=== PATIENT | male | born 1965 | race Caucasian/White ===

== ENCOUNTER 2017-07-14 14:04 | Inpatient (IN) | payer OTHER ==
[2017-07-14] MEDS ORDERED: RX INFO: IV CONTRAST WAS GIVEN 1 EACH MISC MISCELLANE PRN (14:09)
--- NOTE | 2017-07-14 14:38 | CT ---
EXAMINATION TYPE: CT brain wo con for TPA DATE OF EXAM: 07/14/2017 COMPARISON: NONE INDICATION: Neural deficits DLP: 1027.50 mGycm, Automated exposure control for dose reduction was used. CONTRAST: None CT of the brain is performed utilizing 3 mm thick sections through the posterior fossa and 3 mm thick sections through the remaining calvarium. Study is performed within 24 hours of arrival to the hosp ital. No abnormal hyperdensity is present to suggest an acute intracranial hemorrhage. No mass lesion is evident. No acute infarcts are evident. There is an old infarct through the right frontal region deep white ma tter. Prior subcortical infarct is likely present. Differential could include posttraumatic changes. The cortex may be preserved however. There is prominence of the ventricles and sulci adjacent to the infarct. Some mild periventricular white matter hypodensity is present likely on the basis of chronic white matter ischemic changes. Ventricles and sulci are appropriate for the patient age. Paranasal sinuses and mastoid air cells within the [id number] are clear. Prior repair of the infer ior left orbit is evident. IMPRESSIONS: 1. No acute intracranial process. 2. Chronic appearing white matter ischemic changes. 3. Old subcortical infarct likely present through the right frontal region with ex vacuo effect.
[2017-07-14 14:44] LABS: Basophils # (A) 0.1 k/uL (0-0.2); Basophils % (A) 1 %; CH 29.5; CHCM 34.1; Eosinophils # (A) 0.2 k/uL (0-0.7); Eosinophils % (A) 2 %; HCT 52.8 % (39.0-53.0); HDW 2.71; HGB 17.1 gm/dL (13.0-17.5); Luc # (Auto) 0.22; Luc % (Auto) 2; Lymphocytes # (A) 2.9 k/uL (1.0-4.8); Lymphocytes % (A) 26 %; MCH 28.1 pg (25.0-35.0); MCHC 32.4 g/dL (31.0-37.0); MCV 86.8 fL (80.0-100.0); Mean Platelet Volume 8.1; Monocytes # (A) 0.8 k/uL (0-1.0); Monocytes % (A) 7 %; Neutrophils # (A) 7.2 k/uL (1.3-7.7); Neutrophils % (A) 63 %; RBC 6.08 m/uL (4.30-5.90); RDW 15.3 % (11.5-15.5); WBC 11.4 k/uL (3.8-10.6); WBC (Perox) 11.06
[2017-07-14 14:48] LABS: Prothrombin Time 9.8 sec (9.0-12.0)
[2017-07-14 14:49] LABS: Partial Thromboplastin Time 20.9 sec (22.0-30.0)
[2017-07-14 14:50] LABS: ALT 78 U/L (21-72); AST 57 U/L (17-59); Alkaline Phosphatase 140 U/L (38-126); Anion Gap 12 mmol/L; Blood Urea Nitrogen 9 mg/dL (9-20); Calcium 9.6 mg/dL (8.4-10.2); Carbon Dioxide 24 mmol/L (22-30); Chloride 106 mmol/L (98-107); Glucose 203 mg/dL (74-99); Non-African American GFR(MDRD) >60 (>60 ml/min/1.73 sqM); Sodium 142 mmol/L (137-145); Total Protein 8.3 g/dL (6.3-8.2)
[2017-07-14 14:56] LABS: Glucose,Whole Blood 216 mg/dL (75-99)
[2017-07-14 15:02] LABS: Potassium 5.2 mmol/L (3.5-5.1)
[2017-07-14 15:08] LABS: Creatine Kinase 45 U/L (55-170)
[2017-07-14 15:20] LABS: Creatine Kinase MB 1.2 ng/mL (0.0-2.4); Troponin I <0.012 ng/mL (0.000-0.034)
[2017-07-14] MEDS ORDERED: SODIUM CHLORIDE 0.9% 1,000 ML IV STA (15:27)
--- NOTE | 2017-07-14 15:43 | CT ---
EXAMINATION TYPE: CT angio head neck DATE OF EXAM: 07/14/2017 HISTORY: Left sided weakness COMPARISON: Noncontrast CT brain 07/14/2017 CT DLP: 359.1 mGycm. Automated Exposure Control for Dose Reduction was Utilized. TECHNIQUE: CTA scan of the neck is performed with IV Contrast, patient injected with 65 mL of Omnipa que 350, axial images are obtained, coronal and sagittal reformatted images are reviewed. Three-D rec onstructed images are created on an independent workstation and reviewed. FINDINGS: Carotid/Vascular Structures: There is occlusion of the right internal carotid artery at its origin. D istal right internal carotid artery has contrast from crossover flow from left to right. Additionally there may be flow from the right posterior communicating artery which is likely present and patent. [place] of [place]: There appears to be attenuated flow within the right A1 segment. The A2 segment lik ewise appears attenuated. There is a small amount of crossover flow in the anterior communicating art omar. The right M1 segment appears normal. M2 segments appear unremarkable on the reconstructed images . Communicating arteries are not identified on the reconstructed images. Other: Right Middle meningeal artery collateral flow was not clearly documented. IMPRESSION: 1. Occlusion of the right internal carotid artery. 2. Attenuated flow within the right A1 segment. The M1 segment is more normal appearance. Faint minim al flow may be present within the anterior communicating artery and the right posterior communicating artery.
[2017-07-14] MEDS ORDERED: SODIUM CHLORIDE 0.9% 1,000 ML IV ONE (15:54)
[2017-07-14] MEDS ORDERED: ASPIRIN 325 MG TAB PO STA (15:54)
[2017-07-14] MEDS ORDERED: levETIRAcetam IV 1,000 MG in SALINE 1 100ML.BAG IVPB STA (15:56)
--- NOTE | 2017-07-14 16:09 | ED ---
General Adult HPI - General Chief complaint: Neuro Symptoms/Deficit Stated complaint: Seizure Time Seen by Provider: 07/14/17 14:09 Source: patient, family, EMS, RN notes reviewed Mode of arrival: EMS Limitations: no limitations - History of Present Illness Initial comments: 52-year-old male with history of hypertension, diabetes, hypercholesterolemia and history of CVA presents with seizure-like activity and left upper extremity weakness. Patient had a CVA approximately one year ago with residual left- sided deficit, he does not have use of his left lower extremity. At baseline the patient does have good strength in his left arm. At approximately 1:30 PM the patient developed shaking on his right upper extremity which was uncontrollable. He was awake and alert according to family members throughout this episode. This lasted approximately 10 minutes. Patient did have seizure activity with his previous CVA approximately one year ago. Patient has not been taking aspirin daily, states it upsets his stomach. He denies missing any of his other medication which includes a blood pressure pill and high cholesterol pill patient denies headache. Denies chest pain or shortness of breath. Confirms that his left lower from the weakness is - Related Data Allergies Allergy/AdvReac Type Severity Reaction Status Date / Time No Known Allergies Allergy Verified 07/14/17 14:42 Review of Systems ROS Statement: Those systems with pertinent positive or pertinent negative responses have been documented in the HPI. ROS Other: All systems not noted in ROS Statement are negative. Past Medical History Past Medical History: Cancer, Chest Pain / Angina, CVA/TIA, Diabetes Mellitus Additional Past Medical History / Comment(s): bladder cancer History of Any Multi-Drug Resistant Organisms: None Reported Past Surgical History: Heart Catheterization With Stent Past Psychological History: No Psychological Hx Reported Smoking Status: Current every day smoker Past Alcohol Use History: None Reported Past Drug Use History: None Reported General Exam Limitations: no limitations General appearance: alert, in no apparent distress Head exam: Present: atraumatic, normocephalic Eye exam: Present: normal appearance, PERRL, EOMI ENT exam: Present: normal exam, mucous membranes dry Neck exam: Present: normal inspection. Absent: tenderness, meningismus Respiratory exam: Present: normal lung sounds bilaterally. Absent: respiratory distress, wheezes, rales Cardiovascular Exam: Present: normal rhythm, tachycardia GI/Abdominal exam: Present: soft. Absent: distended, tenderness, guarding Extremities exam: Present: normal inspection, normal capillary refill, other ( Patient has left lower extremity paralysis, he has a drift in his left upper extremity with decreased seam steamer strength, no deficit on the right, there may be additional left-sided facial droop although minor. Patient does have dysarthria this is at baseline.). Absent: pedal edema Neurological exam: Present: alert, oriented X3. Absent: CN II-XII intact, motor sensory deficit Psychiatric exam: Present: normal affect, normal mood Skin exam: Present: warm, dry, intact. Absent: cyanosis, diaphoretic Course Vital Signs 07/14/17 07/14/17 07/14/17 14:04 14:15 14:30 Temperature 98.0 F Pulse Rate 128 H 112 H 115 H Respiratory 20 20 20 Rate Blood Pressure 148/99 145/98 143/95 O2 Sat by Pulse 99 96 98 Oximetry 07/14/17 07/14/17 07/14/17 14:45 15:00 15:34 Temperature 98.4 F Pulse Rate 116 H 113 H 108 H Respiratory 20 20 20 Rate Blood Pressure 165/99 151/106 157/96 O2 Sat by Pulse 99 96 97 Oximetry - Reevaluation(s) Reevaluation #1: 07/14/17 16:06 On reevaluation, patient's symptoms are unchanged. Continues to have left upper extremity weakness EKG Findings - EKG Comments: EKG Findings:: EKG shows sinus tachycardia with a ventricular rate of 108, MS 174, QRS duration 92, QTC 456 no signs of ischemia Medical Decision Making - Medical Decision Making 52-year-old male presenting with movements concerning for focal seizure in his right upper extremity, and left upper extremity weakness. Patient does have history of CVA with residual deficits. Time of onset was 1:30. Movements of the right upper shoulder lasted approximately 10 minutes. Initial NIH is 7, the components of this better new is 1 or 2 for left upper chrie drift, and minimal left facial droop. Patient is urgently taken to CAT scan for both unenhanced CT as well as CT angiography. CT is obtained and does show chronic changes, no cranial hemorrhage. CT angiography shows internal carotid occlusion. Patient does report a history of occlusion in his neck vessels that was in operable with his CVA 1 year ago. These images and Achilles are discussed with Dr. Mcgill the interventional neurologist. He does recommend medical management with aspirin and statin at this time as well as MRI for evaluation of new stroke. He also recommends normal saline bolus to maintain slightly elevated blood pressure. Patient is given aspirin and 2 L normal saline bolus in the emergency department. Patient will be admitted to internal medicine for neurology evaluation and urgent MRI. Case is discussed with the admitting physician. Diagnosis: Acute CVA - Lab Data Result diagrams: 07/14/17 14:14 07/14/17 14:14 Lab Results 07/14/17 07/14/17 07/14/17 Range/Units 14:14 14:14 14:14 WBC 11.4 H (3.8-10.6) k/uL RBC 6.08 H (4.30-5.90) m/uL Hgb 17.1 (13.0-17.5) gm/dL Hct 52.8 (39.0-53.0) % MCV 86.8 (80.0-100.0) fL MCH 28.1 (25.0-35.0) pg MCHC 32.4 (31.0-37.0) g/dL RDW 15.3 (11.5-15.5) % Plt Count 280 (150-450) k/uL Neutrophils % 63 % Lymphocytes % 26 % Monocytes % 7 % Eosinophils % 2 % Basophils % 1 % Neutrophils # 7.2 (1.3-7.7) k/uL Lymphocytes # 2.9 (1.0-4.8) k/uL Monocytes # 0.8 (0-1.0) k/uL Eosinophils # 0.2 (0-0.7) k/uL Basophils # 0.1 (0-0.2) k/uL PT (9.0-12.0) sec INR (<1.2) APTT (22.0-30.0) sec Sodium 142 (137-145) mmol/L Potassium 5.2 H (3.5-5.1) mmol/L Chloride 106 (98-107) mmol/L Carbon Dioxide 24 (22-30) mmol/L Anion Gap 12 mmol/L BUN 9 (9-20) mg/dL Creatinine 0.59 L (0.66-1.25) mg/dL Est GFR (MDRD) Af Amer >60 (>60 ml/min/1.73 sqM) Est GFR (MDRD) Non-Af >60 (>60 ml/min/1.73 sqM) Glucose 203 H (74-99) mg/dL POC Glucose (mg/dL) (75-99) mg/dL POC Glu Director Credit Risk ID Calcium 9.6 (8.4-10.2) mg/dL Total Bilirubin 1.0 (0.2-1.3) mg/dL AST 57 (17-59) U/L ALT 78 H (21-72) U/L Alkaline Phosphatase 140 H (38-126) U/L Total Creatine Kinase 45 L (55-170) U/L CK-MB (CK-2) 1.2 (0.0-2.4) ng/mL CK-MB (CK-2) Rel Index 2.7 Troponin I <0.012 (0.000-0.034) ng/mL Total Protein 8.3 H (6.3-8.2) g/dL Albumin 4.7 (3.5-5.0) g/dL 07/14/17 07/14/17 Range/Units 14:14 14:35 WBC (3.8-10.6) k/uL RBC (4.30-5.90) m/uL Hgb (13.0-17.5) gm/dL Hct (39.0-53.0) % MCV (80.0-100.0) fL MCH (25.0-35.0) pg MCHC (31.0-37.0) g/dL RDW (11.5-15.5) % Plt Count (150-450) k/uL Neutrophils % % Lymphocytes % % Monocytes % % Eosinophils % % Basophils % % Neutrophils # (1.3-7.7) k/uL Lymphocytes # (1.0-4.8) k/uL Monocytes # (0-1.0) k/uL Eosinophils # (0-0.7) k/uL Basophils # (0-0.2) k/uL PT 9.8 (9.0-12.0) sec INR 1.0 (<1.2) APTT 20.9 L (22.0-30.0) sec Sodium (137-145) mmol/L Potassium (3.5-5.1) mmol/L Chloride (98-107) mmol/L Carbon Dioxide (22-30) mmol/L Anion Gap mmol/L BUN (9-20) mg/dL Creatinine (0.66-1.25) mg/dL Est GFR (MDRD) Af Amer (>60 ml/min/1.73 sqM) Est GFR (MDRD) Non-Af (>60 ml/min/1.73 sqM) Glucose (74-99) mg/dL POC Glucose (mg/dL) 216 H (75-99) mg/dL POC Glu Director Credit Risk ID Calcium (8.4-10.2) mg/dL Total Bilirubin (0.2-1.3) mg/dL AST (17-59) U/L ALT (21-72) U/L Alkaline Phosphatase (38-126) U/L Total Creatine Kinase (55-170) U/L CK-MB (CK-2) (0.0-2.4) ng/mL CK-MB (CK-2) Rel Index Troponin I (0.000-0.034) ng/mL Total Protein (6.3-8.2) g/dL Albumin (3.5-5.0) g/dL Critical Care Time Critical Care Time: Yes Total Critical Care Time: 35 Disposition Clinical Impression: Cerebrovascular accident Disposition: ADMITTED IP TO THIS [facility] Condition: Stable Referrals: Nonstaff,Physician [Primary Care Provider] - 1-2 days Decision to Admit Reason: Admit from EC Decision Date: 07/14/17 Decision Time: 16:09
--- NOTE | 2017-07-14 17:12 | XR ---
EXAMINATION TYPE: XR chest 2V DATE OF EXAM: 07/14/2017 COMPARISON: None INDICATION: Seizure, left-sided weakness, history of cancer angina TECHNIQUE: Frontal and lateral views of the chest are obtained. FINDINGS: The heart size is normal. The pulmonary vasculature is normal. The lungs are clear. Electronic device overlies left heart border on the frontal projection is anter ior within the chest wall. IMPRESSION: 1. No acute pulmonary process.
[2017-07-14 17:14] LABS: Glucose,Whole Blood 168 mg/dL (75-99)
[2017-07-14 20:10] LABS: Glucose,Whole Blood 145 mg/dL (75-99)
--- NOTE | 2017-07-14 20:20 | P.HPIM ---
History of Present Illness H&P Date: 07/14/17 Chief Complaint: sudden onset weakness of left upper extremity This is a 52-year-old male with past medical history significant for CVA, diabetes mellitus, hypertension. Patient at the current time is sleepy easily arousable. He is providing very limited history. Information was obtained by talking to the patient and reviewing medical records and ER records. Seems like the patient has been visiting here in [place] due to some family issues, he normally lives in [place]. However today around 1:30 PM patient reported to have some shaking and has right upper extremity which was described as jerking movement localized to the right upper extremity that has lasted for around 10 minutes without any loss of consciousness as the patient was alert during that event was concerning for seizure as there is a vague reports of previous seizure activity with his previous stroke which the patient is denying.. Patient at baseline has some left-sided weakness with left lower extremity paresis. However he was noticed to have new worsening left upper extremity weakness. Per family patient had the stroke a year ago resulting in residual left-sided deficits. However he has been noncompliant with his aspirin and statin due to upset stomach. Currently patient is mainly reporting the left upper extremity weakness which is concerning for him otherwise he denies any headache or changes in his vision or hearing or any new other focal weakness. Patient denies any chest pain or trouble breathing at this time. He remembers the event of right upper extremity shaking and locking without any loss of consciousness In the emergency department upon presentation patient had an NIH of 7, he was taken urgently for CAT scan CTA head and neck. Findings were discussed with interventional neurology who recommended medical treatment at this time. Findings from CT angiogram was right internal carotid occlusion which family members again reported as chronic and they reported that doctors a year ago told them that it was inoperable. Interventional neurology recommended obtaining an MRI of the brain to evaluate for new stroke patient was admitted for further workup. I attempted to contact family using the phone numbers in chart however no one was answering the phones. Review of Systems positive for right upper extremity shaking, new onset left upper extremity weakness worsening compared to before, patient feeling sleepy due to traveling overnight from [place] and lack of sleep, otherwise denies any headache changes in his vision or hearing denies any changes in his speech denies any chest pain or trouble breathing denies any nausea or vomiting otherwise as documented in the HPI, all other systems were reviewed and are negative Past Medical History Past Medical History: Cancer, Chest Pain / Angina, CVA/TIA, Diabetes Mellitus, Hyperlipidemia Additional Past Medical History / Comment(s): bladder cancer History of Any Multi-Drug Resistant Organisms: None Reported Past Surgical History: Heart Catheterization Additional Past Surgical History / Comment(s): left foot surgery Past Psychological History: No Psychological Hx Reported Smoking Status: Current every day smoker Past Alcohol Use History: None Reported Past Drug Use History: None Reported Additional History: patient denies any family history of cancer or CAD Medications and Allergies Home Medications and Allergies Comment(s): patient could not remember his home medications, but reported off/on taking aspirin and statin Allergies Allergy/AdvReac Type Severity Reaction Status Date / Time No Known Allergies Allergy Verified 07/14/17 14:42 Physical Exam Vitals: Vital Signs Temp Pulse Pulse Resp BP BP Pulse Ox 07/14/17 17:38 97 F L 91 16 124/73 96 07/14/17 16:49 104 H 20 155/84 98 07/14/17 15:34 98.4 F 108 H 20 157/96 97 07/14/17 15:00 113 H 20 151/106 96 07/14/17 14:45 116 H 20 165/99 99 07/14/17 14:30 115 H 20 143/95 98 07/14/17 14:15 112 H 20 145/98 96 07/14/17 14:04 98.0 F 128 H 20 148/99 99 Intake and Output 07/14/17 07/14/17 07/14/17 06:59 14:59 22:59 Other: # Voids 1 Weight 83.915 kg 86.8 kg Patient Weight 07/15/17 06:59 Weight 86.8 kg Constitutional: Not in acute distress, pleasant, conversant, vital signs stable Eyes: Pupils equal round reactive to light anicteric sclerae, moist conjunctivae ENMT: Normocephalic, atraumatic, oropharynx clear, no erythema/exudate Neck: Supple, FORM, no palpable thyromegally Lymphatics: no palpable cervical or supraclavicular lymph nodes, no palpable inguinal lymph nodes Respiratory: Clear to auscultation bilaterally, no wheezes, no crackles, no rhonchi, clear to percussion, normal respiratory effort without use of accessory muscles Cardiovascular: Regular rate and rhythm, no murmurs, no gallops, no rubs, no peripheral edema no JVD, no carotid bruits, f peripheral pulses palpable and equal over bilateral radial arteries and dorsalis pedis arteries Abdomen: Bowel sounds positive, soft, no tenderness to palpation, no palpable masses, no palpable hepatosplenomegally, no abdominal wall hernias Extremities: No digital cyanosis, ischemia or clubbing, no calf muscle tenderness bilaterally, left lower extremity paresis, left upper extremity weakness Psych: Alert, oriented to place, person and date, recent and remote memory intact, appropriate mood and affect, intact judgment Neurologic: Cranial nerves II-XII grossly intact except for mild left fascial weakness, sensation to light touch is intact except for deficit over left lower extremity, left upper extremity weakness 3/5 in the proximal muscle group and 4/ 5 in the distal muscle group. deep tendon reflexes over bilateral knees could not be elicited, right plantar reflex is equivocal. finger nose exam is limited over left UE due to weakness, and intact over right upper extremity Results Results: labs reviewed CBC & Chem 7: 07/14/17 14:14 07/14/17 14:14 Labs: Abnormal Lab Results - Last 24 Hours (Table) 07/14/17 07/14/17 07/14/17 Range/Units 14:14 14:14 14:14 WBC 11.4 H (3.8-10.6) k/uL RBC 6.08 H (4.30-5.90) m/uL APTT (22.0-30.0) sec Potassium 5.2 H (3.5-5.1) mmol/L Creatinine 0.59 L (0.66-1.25) mg/dL Glucose 203 H (74-99) mg/dL POC Glucose (mg/dL) (75-99) mg/dL ALT 78 H (21-72) U/L Alkaline Phosphatase 140 H (38-126) U/L Total Creatine Kinase 45 L (55-170) U/L Total Protein 8.3 H (6.3-8.2) g/dL 07/14/17 07/14/17 07/14/17 Range/Units 14:14 14:35 17:06 WBC (3.8-10.6) k/uL RBC (4.30-5.90) m/uL APTT 20.9 L (22.0-30.0) sec Potassium (3.5-5.1) mmol/L Creatinine (0.66-1.25) mg/dL Glucose (74-99) mg/dL POC Glucose (mg/dL) 216 H 168 H (75-99) mg/dL ALT (21-72) U/L Alkaline Phosphatase (38-126) U/L Total Creatine Kinase (55-170) U/L Total Protein (6.3-8.2) g/dL Thrombosis Risk Factor Assmnt - Choose All That Apply Each Factor Represents 1 point: Age 41-60 years Thrombosis Risk Factor Assessment Total Risk Factor Score: 1 Thrombosis Risk Factor Assessment Level: Low Risk Assessment and Plan (1) Cerebrovascular accident Status: Acute (2) Internal carotid artery occlusion Narrative/Plan: possibly chronic per patient report vascular surgery evaluation Status: Acute (3) Diabetes mellitus Narrative/Plan: insulin dependant Status: Chronic (4) Bladder cancer Status: Chronic (5) Hyperlipidemia Status: Chronic (6) CAD (coronary artery disease) Status: Chronic (7) Partial seizure Status: Acute (8) DVT prophylaxis Narrative/Plan: heparin sq Status: Acute Plan: Per interventional neurology , consider medical therapy with aspirin and statin neurochecks fall precautions PT/OT echocardiogram vascular consultation for internal carotid occlusion EEG to r/o9 seizure insulin sliding scale and levemir cardiac monitoring OP follow up for bladder cancer monitor electrolytes check TSH, A1c, vitamin B12 await further neurology input full code status Time with Patient: Greater than 30
[2017-07-14] MEDS: FAMOTIDINE 20 MG TAB PO SCH (21:27)
[2017-07-14] MEDS: ATORVASTATIN 80 MG TAB PO SCH (21:27)
[2017-07-14] MEDS: INSULIN DETEMIR 100 UNIT/ML 10 ML VIAL SQ SCH (21:34)
[2017-07-14] MEDS: INSULIN LISPRO (humaLOG) 300 UNIT/3 ML VIAL SQ SCH (21:48)
[2017-07-14 21:58] LABS: Hemoglobin A1C 11.6 % (4.2-6.1)
[2017-07-15] MEDS: DOCUSATE 100 MG CAP PO SCH ×4 (00:19→20:05)
[2017-07-15] MEDS: HEPARIN SODIUM,PORCINE 5,000 UNIT/ML 1 ML VIAL SQ SCH ×4 (00:20→23:14)
[2017-07-15 06:21] LABS: Glucose,Whole Blood 100 mg/dL (75-99)
[2017-07-15] MEDS: INSULIN LISPRO (humaLOG) 300 UNIT/3 ML VIAL SQ SCH ×4 (06:23→21:41)
[2017-07-15 06:33] LABS: ALT 65 U/L (21-72); AST 36 U/L (17-59); Alkaline Phosphatase 101 U/L (38-126); Anion Gap 8 mmol/L; Blood Urea Nitrogen 9 mg/dL (9-20); Calcium 8.5 mg/dL (8.4-10.2); Carbon Dioxide 23 mmol/L (22-30); Chloride 112 mmol/L (98-107); Cholesterol 154 mg/dL (<200); Glucose 97 mg/dL (74-99); HDL Cholesterol 29 mg/dL (40-60); Non-African American GFR(MDRD) >60 (>60 ml/min/1.73 sqM); Potassium 4.1 mmol/L (3.5-5.1); Sodium 143 mmol/L (137-145); Total Bilirubin 0.6 mg/dL (0.2-1.3); Total Protein 5.8 g/dL (6.3-8.2)
[2017-07-15 06:52] LABS: Basophils # (A) 0.1 k/uL (0-0.2); Basophils % (A) 1 %; CH 28.6; CHCM 33.6; Eosinophils # (A) 0.3 k/uL (0-0.7); Eosinophils % (A) 2 %; HCT 46.2 % (39.0-53.0); HDW 2.73; HGB 15.6 gm/dL (13.0-17.5); Luc # (Auto) 0.27; Luc % (Auto) 3; Lymphocytes # (A) 2.8 k/uL (1.0-4.8); Lymphocytes % (A) 26 %; MCH 28.8 pg (25.0-35.0); MCHC 33.7 g/dL (31.0-37.0); MCV 85.6 fL (80.0-100.0); Mean Platelet Volume 7.1; Monocytes # (A) 0.6 k/uL (0-1.0); Monocytes % (A) 6 %; Neutrophils # (A) 6.8 k/uL (1.3-7.7); Neutrophils % (A) 63 %; RDW 14.1 % (11.5-15.5); WBC 10.8 k/uL (3.8-10.6); WBC (Perox) 10.59
[2017-07-15] MEDS: ASPIRIN 325 MG TAB PO SCH (09:41)
[2017-07-15] MEDS: FAMOTIDINE 20 MG TAB PO SCH ×2 (09:41→20:05)
[2017-07-15] MEDS: NICOTINE 21MG/24HR PATCH TRANSDERM SCH (09:42)
[2017-07-15 11:45] LABS: Glucose,Whole Blood 292 mg/dL (75-99)
--- NOTE | 2017-07-15 12:54 | P.CNNES ---
History of Present Illness Consult date: 07/14/17 Reason for Consult: Patient being evaluated for left sided weakness. History of Present Illness: This patient is a 52-year-old right-handed white male who was brought into [facility] today for further evaluation of history of stroke and new symptoms of jerking movements involving his left upper extremity. Patient has a history of having suffered a stroke in September 2016 in [place]. He is actually living in [place] and was in [place] visiting family members. Patient states he had a stroke on 09/22/2016. He has residual left-sided hemiparesis following the stroke. Apparently he was advised to take aspirin and a statin but has not been compliant in taking these medications. He has residual left-sided weakness following his stroke. He also has a known history of severe carotid artery stenosis and complete occlusion of the right ICA. This was likely detected during his stroke workup last year. The patient was brought into the emergency room where he was further evaluated. In the ER his NIH stroke scale was 7.0. He underwent a CAT scan of the brain and CTA of the head and neck. CAT scan of the brain revealed no acute intracranial process. Chronic white matter ischemic changes were noted. An old subcortical infarct was noted in the right frontal lobe. CTA of the head and neck revealed total occlusion of the right ICA. The patient was not felt to be a candidate for tPA as per Dr. Leiva the neuro interventionalist at [facility]. He was advised admission to the hospital with further neurological assessment and workup. Patient is a poor historian. He states he is not sure if he lost consciousness when his left arm shaking. There is some possibility of a partial seizure for this event. He is to undergo an EEG for further evaluation. There is also a possibility the patient may have suffered a new area of stroke. He is to undergo an MRI of the brain for further evaluation. On further questioning he denies any previous history of seizure or head injury. He does have a remote history of bladder cancer as well. The patient is been admitted and neurology is now been consulted for further evaluation and recommendations. Review of Systems Constitutional: Denies chills, Denies fever Eyes: denies blurred vision, denies pain Ears, nose, mouth and throat: Denies headache, Denies sore throat Cardiovascular: Denies chest pain, Denies shortness of breath Respiratory: Denies cough Gastrointestinal: Denies abdominal pain, Denies diarrhea, Denies nausea, Denies vomiting Musculoskeletal: Denies myalgias Integumentary: Denies pruritus, Denies rash Neurological: Reports change in mentation, Reports change in speech, Reports confusion, Reports convulsions, Reports headaches, Reports memory loss, Reports paresthesias, Reports seizures, Denies numbness, Denies weakness Psychiatric: Denies anxiety, Denies depression Endocrine: Denies fatigue, Denies weight change Past Medical History Past Medical History: Cancer, Chest Pain / Angina, CVA/TIA, Diabetes Mellitus, Hyperlipidemia Additional Past Medical History / Comment(s): bladder cancer History of Any Multi-Drug Resistant Organisms: None Reported Past Surgical History: Heart Catheterization Additional Past Surgical History / Comment(s): left foot surgery Past Psychological History: No Psychological Hx Reported Smoking Status: Current every day smoker Past Alcohol Use History: None Reported Past Drug Use History: None Reported Medications and Allergies Allergies Allergy/AdvReac Type Severity Reaction Status Date / Time No Known Allergies Allergy Verified 07/14/17 14:42 Physical Examination - Vital Signs Vital Signs: Vital Signs Temp Pulse Pulse Resp BP BP Pulse Ox 07/14/17 19:48 98.1 F 84 18 124/73 94 L 07/14/17 17:38 97 F L 91 16 124/73 96 07/14/17 16:49 104 H 20 155/84 98 07/14/17 15:34 98.4 F 108 H 20 157/96 97 07/14/17 15:00 113 H 20 151/106 96 07/14/17 14:45 116 H 20 165/99 99 07/14/17 14:30 115 H 20 143/95 98 07/14/17 14:15 112 H 20 145/98 96 07/14/17 14:04 98.0 F 128 H 20 148/99 99 Intake and Output 07/14/17 07/14/17 07/14/17 06:59 14:59 22:59 Other: # Voids 1 Weight 83.915 kg 86.8 kg Patient Weight 07/15/17 06:59 Weight 86.8 kg - Constitutional General appearance: average body habitus, cooperative - EENT EENT: PERRL, mucous membranes moist - Respiratory Respiratory: lungs clear, normal breath sounds - Cardiovascular Cardiovascular: regular rate, normal S1, normal S2 Extremities: no peripheral edema bilaterally - Gastrointestinal Gastrointestinal: normoactive bowel sounds - Integumentary Integumentary: normal - Neurologic Cranial nerve examination: PERRL, VFF, face symmetric, intact gag reflex, intact corneal reflex, normal palatal elevation Speech examination: intact Sensorimotor examination: intact Motor examination - right side: 4/5: biceps, triceps, wrist flexion, wrist extension, drug room operator, hip flexors, knee extensors, dorsiflexion, toe extension (EHL) , plantarflexion Motor examination - left side: 3/5: biceps, triceps, wrist flexion, wrist extension, drug room operator, hip flexors, knee extensors, dorsiflexion, toe extension (EHL) , plantarflexion Detailed sensory examination: intact Reflex and gait examination: intact Reflexes: 1+: ankle, bicep, knee, tricep - Musculoskeletal Musculoskeletal: no pain - Psychiatric Psychiatric: mood/affect appropriate, cooperative Results - Laboratory Findings CBC and BMP: 07/15/17 05:54 07/15/17 05:54 Abnormal Lab Findings: Abnormal Labs 07/14/17 07/14/17 07/14/17 14:14 14:14 14:14 WBC 11.4 H RBC 6.08 H APTT Potassium 5.2 H Creatinine 0.59 L Glucose 203 H POC Glucose (mg/dL) ALT 78 H Alkaline Phosphatase 140 H Total Creatine Kinase 45 L Total Protein 8.3 H 07/14/17 07/14/17 07/14/17 14:14 14:35 17:06 WBC RBC APTT 20.9 L Potassium Creatinine Glucose POC Glucose (mg/dL) 216 H 168 H ALT Alkaline Phosphatase Total Creatine Kinase Total Protein 07/14/17 20:07 WBC RBC APTT Potassium Creatinine Glucose POC Glucose (mg/dL) 145 H ALT Alkaline Phosphatase Total Creatine Kinase Total Protein Assessment and Plan (1) Chronic right arterial ischemic stroke, MCA (middle cerebral artery) Status: Acute Code(s): I69.30 - UNSPECIFIED SEQUELAE OF CEREBRAL INFARCTION (2) Internal carotid artery occlusion Status: Acute Code(s): I65.29 - OCCLUSION AND STENOSIS OF UNSPECIFIED CAROTID ARTERY (3) Diabetes mellitus Status: Chronic Code(s): E11.9 - TYPE 2 DIABETES MELLITUS WITHOUT COMPLICATIONS (4) Bladder cancer Status: Chronic Code(s): C67.9 - MALIGNANT NEOPLASM OF BLADDER, UNSPECIFIED (5) CAD (coronary artery disease) Status: Chronic Code(s): I25.10 - ATHSCL HEART DISEASE OF [place] CORONARY ARTERY W/O ANG PCTRS Plan: This patient is a 52-year-old male who was admitted to hospital with acute onset of left arm shaking and tremors. Patient has history of previous stroke which she suffered in September 2016. He has been treated for this stroke in [place]. He has a known history of right internal carotid artery total occlusion. He has been taking treatment for his stroke and was visiting family members locally. He was noted to have sudden onset of tremors and shaking and jerking of his left arm. He was subtotally brought into the emergency room and admitted to hospital. He was not a TPA candidate as per Dr. Leiva evaluation. He was subsequent admitted to the hospital. We have recommended further evaluation for this patient including MRI of the brain to rule out new area of infarction. We will obtain a routine EEG to rule out seizure disorder. His overall prognosis at this time remains very guarded. Time with Patient: Greater than 30
--- NOTE | 2017-07-15 14:00 | CONS ---
This is a 52 -year-old gentleman who is a resident of [place]. The patient has previous history of CVA, diabetes, hypertension, the patient has been admitted with history of new onset of weakness left upper and lower extremity. He also had some jerking movement of the right upper extremity with complete recovery. The patient had a CT of the head which showed the patient has chronic white matter infarct. CT of the carotid showed right internal totally occluded which has been present for a long time. The patient has been admitted for medical management. On examination, the patient was seen in his room. He was alert and oriented to time and place. His neck was supple. No bruit appreciated. Chest clear to auscultation. First and second sounds normal. Abdominal examination: Abdomen soft and nontender. Vascular examination: Brachy, radial and femoral pulses present. Central nervous system: The patient has hemiparesis of the left upper and left lower extremity. Right hand has good motor function. PLAN: the patient is not a candidate for surgical intervention. Right carotid has been occluded for a long time. The patient will be on antiplatelet therapy. Will follow with you. Thank you very much for the consult. HUGO
[2017-07-15 17:23] LABS: Glucose,Whole Blood 99 mg/dL (75-99)
--- NOTE | 2017-07-15 18:42 | P.PN ---
Subjective Principal diagnosis: Patient seen and examined in follow-up of acute stroke This is a 52-year-old male with past medical history significant for CVA, diabetes mellitus, hypertension. Patient has history of stroke a year ago, he was visiting here in [place] on coming from [place]. He experienced sudden onset shaking of his right upper extremity and weakness of his left upper extremity for which he was presented to the hospital. He was evaluated here with CT angiogram head and neck and CT of the head was suggested a new ischemic stroke however interventional neurology did not find him a good candidate for TPA. Patient was admitted for full medical therapy. Patient was seen and examined today reports some improvement in his left upper extremity weakness he continues to have slight left facial droop and left upper extremity weakness. Otherwise no other changes. He denies any chest pain or trouble breathing denies any headache or changes in his vision or hearing. Objective - Vital Signs Vital signs: Vital Signs Temp 97.5 F L 07/15/17 12:00 Pulse 72 07/15/17 12:00 Resp 16 07/15/17 12:00 BP 135/86 07/15/17 12:00 Pulse Ox 97 07/15/17 12:00 Intake & Output 07/14/17 07/15/17 07/15/17 18:59 06:59 18:59 Intake Total 230 Output Total 375 1500 Balance -375 -1270 Weight 86.8 kg 97 kg Intake: Oral 230 Output: Urine 375 1500 Other: # Voids 1 1 - Exam Constitutional: vital signs stable, Not in acute distress, pleasant, conversant Lungs: Clear to auscultation bilaterally, clear to percussion, normal respiratory effort no use of accessory muscles Cardiovascular: Regular rate and rhythm, no murmurs, no gallops, no rubs, no peripheral edema Extremities: Left upper extremity weakness improved compared to yesterday, chronic left lower extremity paresis. No leg edema bilaterally no tenderness to palpation of the calf muscles bilaterally Psych: Alert, oriented to place, person and time Neuro: Cranial nerves II-XII grossly intact except for mild left facial weakness with slight flattening of the left nasolabial folds - Labs CBC & Chem 7: 07/15/17 05:54 07/15/17 05:54 Labs: Abnormal Lab Results - Last 24 Hours (Table) 07/14/17 07/14/17 07/15/17 Range/Units 14:14 20:07 05:54 WBC (3.8-10.6) k/uL Chloride 112 H (98-107) mmol/L Creatinine 0.60 L (0.66-1.25) mg/dL POC Glucose (mg/dL) 145 H (75-99) mg/dL Hemoglobin A1c 11.6 H (4.2-6.1) % Total Protein 5.8 L (6.3-8.2) g/dL Albumin 3.1 L (3.5-5.0) g/dL HDL Cholesterol 29 L (40-60) mg/dL 07/15/17 07/15/17 07/15/17 Range/Units 05:54 06:20 11:43 WBC 10.8 H (3.8-10.6) k/uL Chloride (98-107) mmol/L Creatinine (0.66-1.25) mg/dL POC Glucose (mg/dL) 100 H 292 H (75-99) mg/dL Hemoglobin A1c (4.2-6.1) % Total Protein (6.3-8.2) g/dL Albumin (3.5-5.0) g/dL HDL Cholesterol (40-60) mg/dL Assessment and Plan (1) Cerebrovascular accident Narrative/Plan: Pending MRI of the brain Continue with aspirin and statin Neurology is following Status: Acute (2) Internal carotid artery occlusion Narrative/Plan: possibly chronic per patient report vascular surgery evaluation recommended no further intervention due to chronicity of the problem Status: Acute (3) Diabetes mellitus Narrative/Plan: insulin dependant Very poorly controlled blood sugars with A1c above 11% Status: Chronic (4) Bladder cancer Status: Chronic (5) Hyperlipidemia Status: Chronic (6) CAD (coronary artery disease) Status: Chronic (7) Partial seizure Narrative/Plan: Await EEG results Status: Acute (8) DVT prophylaxis Narrative/Plan: heparin sq Status: Acute Plan: Continue with full medical management of acute stroke with aspirin and statin Continue with neuro checks Fall precautions Physical therapy evaluation Pending echocardiogram, MRI of the brain, an EEG to rule out seizures full code status Anticipate discharge of the patient within 2448 hrs. pending above workup
[2017-07-15] MEDS: INSULIN DETEMIR 100 UNIT/ML 10 ML VIAL SQ SCH (20:05)
[2017-07-15] MEDS: ATORVASTATIN 80 MG TAB PO SCH (20:05)
[2017-07-15 20:42] LABS: Glucose,Whole Blood 167 mg/dL (75-99)
[2017-07-16 05:41] LABS: Glucose,Whole Blood 230 mg/dL (75-99)
[2017-07-16] MEDS: INSULIN LISPRO (humaLOG) 300 UNIT/3 ML VIAL SQ SCH ×3 (06:44→17:17)
[2017-07-16] MEDS: DOCUSATE 100 MG CAP PO SCH ×3 (09:23→17:23)
[2017-07-16] MEDS: HEPARIN SODIUM,PORCINE 5,000 UNIT/ML 1 ML VIAL SQ SCH ×2 (09:23→17:17)
[2017-07-16] MEDS: FAMOTIDINE 20 MG TAB PO SCH (09:24)
[2017-07-16] MEDS: ASPIRIN 325 MG TAB PO SCH (09:24)
[2017-07-16] MEDS: NICOTINE 21MG/24HR PATCH TRANSDERM SCH (09:24)
[2017-07-16 09:26] VITALS: TEMP 99
[2017-07-16 11:40] LABS: Glucose,Whole Blood 181 mg/dL (75-99)
[2017-07-16 12:34] VITALS: RESP 18
[2017-07-16 14:25] VITALS: BMI 28.1
--- NOTE | 2017-07-16 14:49 | ECHOF ---
Referral Reason:Thrombus MEASUREMENTS -------- HEIGHT: 180.3 cm WEIGHT: 93.9 kg BP: 122/74 IVSd: 1.1 cm (0.6 - 1.1) LVIDd: 3.6 cm (3.9 - 5.3) LVPWd: 1.1 cm (0.6 - 1.1) EDV(Teich): 55 ml IVSs: 1.7 cm LVIDs: 1.7 cm LVPWs: 1.9 cm %IVS Thck: 47 % ESV(Teich): 9 ml EF(Teich): 84 % %FS: 52 % SV(Teich): 46 ml Ao Diam: 3.5 cm (2.0 - 3.7) AV Cusp: 2.0 cm (1.5 - 2.6) LA Diam: 2.8 cm (2.7 - 3.8) MV EXCURSION: 18.048 mm (> 18.000) MV EF SLOPE: 133 mm/s (70 - 150) EPSS: 0.7 cm MV E Jamil: 0.44 m/s MV DecT: 223 ms MV Dec Sioux: 2.0 m/s MV A Jamil: 0.42 m/s MV E/A Ratio: 1.04 MV PHT: 65 ms E/E': 4.61 E': 0.09 m/s MR Vmax: 2.04 m/s MR maxP.66 mmHg AV Vmax: 1.21 m/s AV maxP.82 mmHg TR Vmax: 0.90 m/s TR maxP.21 mmHg RAP: 5.00 mmHg RVSP: 8.21 mmHg FINDINGS -------- Sinus rhythm. This was a technically difficult study with suboptimal views. Left ventricular wall thickness is normal. Overall left ventricular systolic function is normal with, an EF between 55 - 60 %. The right ventricle is normal in size and function. The left atrium is normal in size. The right atrium is normal in size. 1.5mg of Definity was utilized for enhancement of images The aortic valve is trileaflet, and appears structurally normal. No aortic stenosis or regurgitation. Normal appearing mitral valve. Trace tricuspid regurgitation present. The right ventricular systolic pressure, as measured by Doppler, is 8.21mmHg. Pulmonic valve appears structurally normal. The aortic root size is normal. The pericardium is normal. CONCLUSIONS -------- 1. Sinus rhythm. 2. Normal appearing mitral valve. 3. Trace tricuspid regurgitation present. 4. The right ventricular systolic pressure, as measured by Doppler, is 8.21mmHg. 5. Pulmonic valve appears structurally normal. 6. The aortic root size is normal. 7. The pericardium is normal. 8. This was a technically difficult study with suboptimal views. 9. Left ventricular wall thickness is normal. 10. Overall left ventricular systolic function is normal with, an EF between 55 - 60 %. 11. The right ventricle is normal in size and function. 12. The left atrium is normal in size. 13. The right atrium is normal in size. 14. 1.5mg of Definity was utilized for enhancement of images 15. The aortic valve is trileaflet, and appears structurally normal. No aortic stenosis or regurgitation. BRANCH RENTAL MANAGER: Andra Mesa RDCS
[2017-07-16 16:43] VITALS: BP 125/90; PULSE 78
[2017-07-16 17:02] LABS: Glucose,Whole Blood 265 mg/dL (75-99)
--- NOTE | 2017-07-16 18:15 | P.DS ---
Providers Date of admission: 07/14/17 15:57 Expected date of discharge: 07/16/17 Attending physician: Bren Mendez MD Consults: 07/14/17 16:33 Consult Physician Routine Consulting Provider: Julia Sanchez Consult Reason/Comments: CVA Do you want consulting provider notified?: Yes 07/14/17 20:20 Consult Physician Routine Consulting Provider: Rakesh Davidson Consult Reason/Comments: right internal carotid occlusion Do you want consulting provider notified?: Yes Primary care physician: Physician Nonstaff - Discharge Diagnosis(es) (1) Cerebrovascular accident Current Visit: Yes Status: Acute (2) Internal carotid artery occlusion Current Visit: Yes Status: Acute (3) Diabetes mellitus Current Visit: Yes Status: Chronic (4) Bladder cancer Current Visit: No Status: Chronic (5) Hyperlipidemia Current Visit: Yes Status: Chronic (6) CAD (coronary artery disease) Current Visit: No Status: Chronic (7) Partial seizure Current Visit: Yes Status: Acute (8) DVT prophylaxis Current Visit: Yes Status: Acute Hospital Course: This is a 52-year-old male with past medical history significant for CVA, diabetes mellitus, hypertension. Patient has history of stroke a year ago, he was visiting here in [place] on coming from [place]. He experienced sudden onset shaking of his right upper extremity and weakness of his left upper extremity for which he was presented to the hospital. He was evaluated here with CT angiogram head and neck and CT of the head was suggested a new ischemic stroke however interventional neurology did not find him a good candidate for TPA. Patient was admitted for full medical therapy. Patient was seen and examined today reports that his left upper extremity strength is almost back to his baseline, denies any new focal neurologic deficits. Denies any chest pain or trouble breathing, denies any headache changes in his vision or hearing. Patient is eager to go home. As he needs to travel back to [place] to take care of his catheter once. Constitutional: vital signs stable, Not in acute distress, pleasant, conversant Eyes: Pupils equal round reactive to light Lungs: Clear to auscultation bilaterally, clear to percussion, normal respiratory effort no use of accessory muscles Cardiovascular: Regular rate and rhythm, no murmurs, no gallops, no rubs, no peripheral edema Extremities: No digital cyanosis or clubbing, peripheral pulses palpable and equal over bilateral radial arteries and dorsalis pedis artery, no calf muscle tenderness Psych: Alert, oriented to place, person and time Neuro: Cranial nerves II-XII grossly intact except for very mild residual left facial weakness as evident by partial loss of the left nasolabial fold, sensory deficits over the left lower extremity which is at baseline, remarkable improvement in the strength of the left upper extremity compared to presentation. Patient counseled to consider MRI of the brain as now patient once he clears the type incompatibility of the left heart monitoring device Chronic occlusion of the right internal carotid artery evaluated by vascular surgery during this admission recommendations is for medical management. Patient condition was discussed with neurology who cleared the patient for discharge More than 35 minutes were spent discharging this patient, and more than 50% of the time was spent in counseling the patient and family and in coordinating care. Patient Condition at Discharge: Stable Plan - Discharge Summary New Discharge Prescriptions: New Insulin Detemir [Levemir] 10 unit SQ HS #1 vial Nicotine 21Mg/24Hr Patch [Habitrol] 1 patch TRANSDERM DAILY #14 patch Continue Aspirin 81 mg PO DAILY #30 tab Atorvastatin Calcium [Lipitor] 80 mg PO HS #30 tab Lisinopril [Zestril] 5 mg PO DAILY #30 tab Discontinued traZODone HCL 50 - 100 mg PO HS PRN PRN Reason: Insomnia Mirabegron [Myrbetriq] 25 mg PO DAILY Gabapentin [Neurontin] 800 mg PO TID valACYclovir [Valtrex] 500 mg PO DAILY Discharge Medication List Aspirin 81 mg PO DAILY #30 tab 07/16/17 [Rx] Atorvastatin Calcium [Lipitor] 80 mg PO HS #30 tab 07/16/17 [Rx] Insulin Detemir [Levemir] 10 unit SQ HS #1 vial 07/16/17 [Rx] Lisinopril [Zestril] 5 mg PO DAILY #30 tab 07/16/17 [Rx] Nicotine 21Mg/24Hr Patch [Habitrol] 1 patch TRANSDERM DAILY #14 patch 07/16/17 [ Rx] Follow up Appointment(s)/Referral(s): Nonstaff,Physician [Primary Care Provider] - 1-2 days Juan Sanchez MD [STAFF PHYSICIAN] - 1 Week Patient Instructions/Handouts: Carotid Artery Disease (DC), Right Hemispheric Stroke (GEN) Activity/Diet/Wound Care/Special Instructions: activity as tolerated low fat low salt diet diabetic diet Care Plan Goals (MU): consider outpatient MRI of the brain evaluation , records regarding your heart monitoring device compatibility is required Discharge Disposition: HOME WITH HOME HEALTH SERVICES
== END 2017-07-16 19:40 | disposition home health service (06) | DRG 65 ==
LOC: EC 14:04 → 6SEL 15:57
PROVIDERS: ADMIT Internal Medicine; ATTEND Internal Medicine
DX: I63.511 Cerebral infarction due to unspecified occlusion or stenosis of right middle cerebral artery (principal); G81.94 Hemiplegia, unspecified affecting left nondominant side; I10 Essential (primary) hypertension; I65.21 Occlusion and stenosis of right carotid artery; E11.9 Type 2 diabetes mellitus without complications; I25.10 Atherosclerotic heart disease of native coronary artery without angina pectoris; I69.322 Dysarthria following cerebral infarction; T46.6X6A Underdosing of antihyperlipidemic and antiarteriosclerotic drugs, initial encounter; E78.5 Hyperlipidemia, unspecified; R00.0 Tachycardia, unspecified; R29.810 Facial weakness; T39.016A Underdosing of aspirin, initial encounter; R29.707 NIHSS score 7; F17.200 Nicotine dependence, unspecified, uncomplicated; Z85.51 Personal history of malignant neoplasm of bladder; Z86.79 Personal history of other diseases of the circulatory system; Z88.0 Allergy status to penicillin; Z79.82 Long term (current) use of aspirin; Z79.4 Long term (current) use of insulin; Z79.899 Other long term (current) drug therapy; Z87.19 Personal history of other diseases of the digestive system; Z91.81 History of falling; Z91.14 Patient's other noncompliance with medication regimen; Z86.69 Personal history of other diseases of the nervous system and sense organs; Z63.9 Problem related to primary support group, unspecified; Z72.820 Sleep deprivation
CPT/HCPCS: 36415; 70450; 70496; 70498; 71020; 80053; 80061; 82550; 82553; 83036; 83735; 84443; 84484; 85025; 85610; 85730; 93005; 93306; 95819; 96361; 96374; 99291